=== PATIENT | male | born 1960 | race Caucasian/White ===

== ENCOUNTER 2017-06-20 11:18 | Day surgery (SDC) | payer OTHER ==
[2017-06-15 09:00] VITALS: BP 156/84
[~2017-06-20] VITALS: Ht 180.3 cm; Wt 92.3 kg
[~2017-06-20 11:18] MED LIST: FINA5TAB4 PO; LACT1CAP35 PO; SENN-87 PO
[2017-06-20] MEDS ORDERED: LACTATED RINGERS 1,000 ML IV SCH (11:39)
[2017-06-20] MEDS ORDERED: MIDAZOLAM 1 MG/ML, 2ML ONE (12:10)
[2017-06-20] MEDS ORDERED: FENTANYL PF 250 MCG/5ML ONE (12:10)
[2017-06-20] MEDS ORDERED: ONDANSETRON 2MG/ML, 2ML ONE (12:44)
[2017-06-20] MEDS ORDERED: LIDOCAINE 1%, 20ML ONE (12:44)
[2017-06-20] MEDS ORDERED: SUCCINYLCHOLINE 20 MG/ML, 10ML ONE (12:44)
[2017-06-20] MEDS ORDERED: PROPOFOL 10 MG/ML, 20ML ONE (12:44)
[2017-06-20] MEDS ORDERED: ROCURONIUM 10MG/ML,5ML ONE (12:44)
[2017-06-20] MEDS ORDERED: DEXAMETHASONE 4 MG/ML, 1ML ONE (12:44)
[2017-06-20] MEDS ORDERED: CIPROFLOXACIN/PMX 400MG/200ML 200 ML ONE (12:59)
[2017-06-20] MEDS ORDERED: SCOPOLAMINE PATCH, 1.5MG PATCH.TD72 TD ONE (13:14)
[2017-06-20] MEDS ORDERED: HYDROmorphone 1 MG/ML, 1ML IV PRN (13:30)
[2017-06-20] MEDS ORDERED: morphine SULFATE 10 MG/ML, 1ML IV PRN (13:30)
[2017-06-20] MEDS ORDERED: LABETALOL 5MG/ML, 20ML IV PRN (13:30)
[2017-06-20] MEDS ORDERED: MEPERIDINE/PF 25MG/0.5ML IVPush PRN (13:30)
[2017-06-20] MEDS ORDERED: LORazepam 2 MG/ML, 1ML IVPush PRN (13:30)
[2017-06-20] MEDS ORDERED: PROMETHAZINE 12.5 MG SUPP PR PRN (13:30)
[2017-06-20] MEDS ORDERED: hydrALAzine 20 MG/ML, 1ML IV PRN (13:30)
[2017-06-20] MEDS ORDERED: ACETAMINOPHEN 325 MG TABLET PO PRN (13:30)
[2017-06-20] MEDS ORDERED: PROMETHAZINE 25 MG/ML, 1ML IV PRN (13:30)
[2017-06-20] MEDS ORDERED: ONDANSETRON 2MG/ML, 2ML IV PRN (15:00)
[2017-06-20] MEDS ORDERED: OPIUM/BELLADONNA SUPP.RECT 16.2-60 MG PR PRN (15:00)
[2017-06-20] MEDS ORDERED: OXYcodone/APAP 5/325MG TABLET PO PRN (15:00)
[2017-06-20] MEDS ORDERED: PHENAZOPYRIDINE 200 MG TABLET PO PRN (15:00)
[2017-06-20] MEDS ORDERED: OPIUM/BELLADONNA SUPP.RECT 16.2-30 MG ONE (15:14)
[2017-06-20] MEDS ORDERED: OXYcodone 5 MG/5 ML ORAL.SOL UDC ONE ×2 (15:23→16:36)
[2017-06-20] MEDS: OXYcodone 5 MG/5 ML ORAL.SOL UDC PO PRN ×2 (15:32→16:37)
[2017-06-20] MEDS: FENTANYL PF 100 MCG/2ML IV PRN ×2 (16:08→16:18)
[2017-06-20] MEDS ORDERED: FENTANYL PF 100 MCG/2ML ONE (16:09)
== END 2017-06-20 18:05 ==
LOC: EDSEX → OUT 11:18
PROVIDERS: ATTEND Urology
DX: N40.0 Benign prostatic hyperplasia without lower urinary tract symptoms (principal)
CPT/HCPCS: 52648; J0330; J0744; J1100; J2250; J2405; J2704; J3010; J3490

== ENCOUNTER 2017-06-21 01:04 | Emergency (ER) | payer OTHER ==
[~2017-06-21] VITALS: Ht 180.3 cm; Wt 97.4 kg
[2017-06-21 01:06] VITALS: BP 112/72
== END 2017-06-21 02:51 | disposition home or self-care (01) ==
LOC: EDSEX 01:04 → ED 02:46
DX: R33.9 Retention of urine, unspecified (principal)
CPT/HCPCS: 99284

== ENCOUNTER 2019-04-26 11:34 | Day surgery (SDC) | payer OTHER ==
[~2019-04-26] VITALS: Ht 180.3 cm; Wt 94.0 kg
[~2019-04-26 11:34] MED LIST changes: -SENN-87 PO; +SENN-88 PO
[2019-04-26] MEDS ORDERED: LACTATED RINGERS 1,000 ML IV SCH (11:55)
[2019-04-26] MEDS ORDERED: GABAPENTIN 300 MG CAPSULE PO STA (11:56)
[2019-04-26] MEDS ORDERED: ACETAMINOPHEN 500 MG TABLET PO STA (11:56)
[2019-04-26] MEDS ORDERED: PLEASE ENTER HEIGHT AND WEIGHT MC SCH (12:00)
[2019-04-26 12:08] VITALS: BP 139/88
[2019-04-26 12:10] VITALS: BP 139/88
[2019-04-26] MEDS ORDERED: FENTANYL PF 250 MCG/5ML ONE (12:22)
[2019-04-26] MEDS ORDERED: MIDAZOLAM 1 MG/ML, 2ML ONE (12:22)
[2019-04-26] MEDS ORDERED: D ME PO (12:32)
[2019-04-26] MEDS ORDERED: [UNRECOGNIZED DRUG - OTHER] PO (12:32)
[2019-04-26] MEDS ORDERED: PROMETHAZINE 25 MG/ML, 1ML IV PRN (13:00)
[2019-04-26] MEDS ORDERED: ALBUTEROL SULFATE 2.5 MG/3 ML NPPB PRN (13:00)
[2019-04-26] MEDS ORDERED: hydrALAzine 20 MG/ML, 1ML IV PRN (13:00)
[2019-04-26] MEDS ORDERED: MEPERIDINE/PF 25MG/ML,1ML IVPush PRN (13:00)
[2019-04-26] MEDS ORDERED: HALOPERIDOL 5 MG/ML IV PRN (13:00)
[2019-04-26] MEDS ORDERED: LABETALOL 5MG/ML, 20ML IV PRN (13:00)
[2019-04-26] MEDS ORDERED: FENTANYL PF 100 MCG/2ML IV PRN (13:00)
[2019-04-26] MEDS ORDERED: HYDROmorphone 2 MG/ML, 1ML IVPush PRN (13:00)
[2019-04-26] MEDS ORDERED: OXYcodone 5 MG/5 ML ORAL.SOL UDC PO PRN (13:00)
[2019-04-26] MEDS ORDERED: KETOROLAC 30 MG/1 ML ONE (13:38)
[2019-04-26] MEDS ORDERED: PROPOFOL 10 MG/ML, 20ML ONE (13:40)
[2019-04-26] MEDS ORDERED: NEOSTIGMINE 1 MG/ML, 10ML ONE (13:40)
[2019-04-26] MEDS ORDERED: ROCURONIUM 10MG/ML,5ML ONE (13:40)
[2019-04-26] MEDS ORDERED: ONDANSETRON 2MG/ML, 2ML ONE (13:40)
[2019-04-26] MEDS ORDERED: CEFAZOLIN 1,000 MG ONE (13:40)
[2019-04-26] MEDS ORDERED: GLYCOPYRROLATE 0.2MG/1ML, 5ML ONE (13:40)
[2019-04-26] MEDS ORDERED: DEXAMETHASONE 4 MG/ML, 1ML ONE (13:40)
[2019-04-26] MEDS ORDERED: SUCCINYLCHOLINE 20 MG/ML, 10ML ONE (13:40)
[2019-04-26] MEDS ORDERED: KETOROLAC 30 MG/1 ML IV PRN (14:00)
[2019-04-26] MEDS ORDERED: ONDANSETRON 2MG/ML, 2ML IV PRN (14:00)
[2019-04-26] MEDS ORDERED: HYDROcodone/APAP 5/325 TABLET PO PRN (14:00)
== END 2019-04-26 16:12 | disposition home or self-care (01) ==
LOC: OUT 11:34
PROVIDERS: ATTEND Urology
DX: N20.1 Calculus of ureter (principal); J45.909 Unspecified asthma, uncomplicated; Z88.8 Allergy status to other drugs, medicaments and biological substances
CPT/HCPCS: 52353; 82360; 88300; 93005; J0330; J0690; J1100; J1885; J2250; J2405; J2704; J3010; J7120; J2710